=== PATIENT | male | born 1965 | race Caucasian/White ===

== ENCOUNTER → 2018-01-11 | Outpatient (CLI) | payer BC ==
[2018-01-11 07:27] LABS: BASOPHILS % 0.5 % (0.0-1.0); EOSINOPHILS # (AUTO) 0.3 (0.0-0.4); EOSINOPHILS % 3.3 % (0.0-6.0); HEMATOCRIT 47.2 % (38.2-49.6); HEMOGLOBIN 15.9 g/dL (14.0-18.0); LYMPHOCYTES % 37.7 % (18.0-39.1); MEAN CORPUSCULAR HGB CONC 33.7 g/dL (31-35); MONOCYTES # (AUTO) 0.7 (0.2-0.8); MONOCYTES % 8.5 % (4.4-11.3); NEUTROPHILS # (AUTO) 3.9 (2.1-6.9); NEUTROPHILS % 49.4 % (38.7-80.0); PLATELET COUNT 219 x10e3/uL (140-360); RED BLOOD COUNT 5.13 x10e6/uL (4.3-5.7); RED CELL DISTRIBUTION WIDTH 12.4 % (11.7-14.4)
[2018-01-11 07:45] LABS: ALANINE AMINOTRANSFERASE 40 IU/L (0-55); ALBUMIN 4.1 g/dL (3.5-5.0); ALBUMIN/GLOBULIN RATIO 1.4 (0.8-2.0); ALKALINE PHOSPHATASE 66 IU/L (40-150); ANION GAP 12.9 mmol/L (8-16); BLOOD UREA NITROGEN 11 mg/dL (7-26); BUN/CREATININE RATIO 11 (6-25); CARBON DIOXIDE 28 mmol/L (22-29); CHLORIDE 103 mmol/L (98-107); CHOL/HDL RATIO 4.7 (3.9-4.7); CHOLESTEROL 278 MD/DL (0-199); CREATININE, SERUM 0.97 mg/dL (0.72-1.25); EST GLOMERULAR FILTRATION RATE > 60 ML/MIN (60-); GLUCOSE 100 mg/dL (74-118); HDL CHOLESTEROL 59 MG/DL (40-60); LDL CHOLESTEROL 173 MG/DL (60-130); POTASSIUM 3.9 mmol/L (3.5-5.1); SODIUM 140 mmol/L (136-145); TRIGLYCERIDES 230 MG/DL (0-149)
[2018-01-11 08:05] LABS: THYROID STIMULATING HORMONE 0.648 uIU/mL (0.350-4.940)
== END ==
LOC: LAB 06:53
PROVIDERS: ATTEND Internal Medicine
DX: I11.9 Hypertensive heart disease without heart failure (principal)
CPT/HCPCS: 36415; 80053; 80061; 82044; 82570; 83036; 84152; 84443; 85025

== ENCOUNTER → 2018-01-27 | Day surgery (SDC) | payer BC ==
[~2018-01-27] MED LIST: BC POWDER PACK1 EAC1 PO; FENTANYL CITRATE/PF 100MCG/2 ML INJ ONE; LIDOCAINE HCL 2% LOCAL INJ 5 ML SDV VIAL INJ ONE; LOTREL 5-10 MG1 EACH PO; MIDAZOLAM HCL 5 MG/ML VIAL ONE; PANTOPRAZOLE 40 MG 10ML VIAL ONE; PEPCID20 MG PO; PROPOFOL IV EMULSION 10 MG/ML 50 ML VIAL ONE
--- OUTSIDE RECORDS SUMMARY | 2018-01-27 07:36 | XMS REPORT ---
Author Author [facility] Address Unknown Phone Unavailable Care Team Providers Care Security Operations Manager Name Role Phone MANNY SHABAZZ Unavailable Unavailable Problems This patient has no known problems. Allergies, Adverse Reactions, Alerts This patient has no known allergies or adverse reactions. Medications This patient has no known medications. Results Test Description Test Time Test Comments Text Results Atomic Results Result Comments MRI SPINE CERVICAL WO [place] [address] Patient Name: FRANCISCO SEVILLA MR #: [id number] : 1965 Age/Sex: 52/M Req #: [id number] Adm Physician: Ordered by: MANNY SHABAZZ MD Report #: [id number] Location: MRI Room/Bed: Procedure: [id number] MRI/MRI SPINE CERVICAL WO Exam Date: 06/29/17 Exam Time: 1115 REPORT STATUS: Signed History: Neck pain Comparison studies: None Technique: Sagittal T1, T2 and IR, axial T2 and axial gradient echo Intravenous contrast: None Findings: Alignment: Straightening of the cervical spine lordosis. No scoliosis. Cervicomedullary junction: No abnormalities. Patent foramen magnum. Soft tissues: No T2 hyperintense inflammatory changes. Spinal cord: Normal in size and signal from the foramen magnum through T4. Surgical changes: Anterior cervical fusion at C6-7. Vertebrae: Interbody fusion at C5-6. No fractures, infection or neoplasm. Degenerative changes: C2-C3: Small central disc osteophyte complex, right uncinate process hypertrophy and facet hypertrophy results in mild right foraminal narrowing without significant canal stenosis C3-C4: Bilateral uncinate process hypertrophy and facet hypertrophy results in mild right foraminal narrowing without significant canal stenosis C4-C5: Bilateral uncinate process hypertrophy and facet hypertrophy results in mild bilateral foraminal narrowing without significant canal stenosis C5-C6: Fused intervertebral space. Bilateral uncinate process hypertrophy results in mild right foraminal narrowing without significant canal stenosis C6-C7: Bilateral uncinate process hypertrophy without significant canal stenosis and mild bilateral foraminal narrowing C7-T1: Mild right uncinate process hypertrophy with patent canal and foramina Partially visualized left thyroid lobe nodule measuring approximately 2.0 cm in CC diameter IMPRESSION: 1. Anterior cervical fusion at C6-7 without complication. 2. Mild degenerative changes of the cervical spine results in multilevel mild foraminal narrowing as described above. No significant canal stenosis. 3. 2.0cm left thyroid lobe nodule recommend correlation with TFTs and ultrasound Signed by: DR Armen Mclain M.D. on 06/29/2017 3:49 PM Dictated By: ARMEN MCLAIN MD [id number] Transcribed By: CHINEDU on 06/29/17 1543 COPY TO: MANNY SHABAZZ MD
--- NOTE | 2018-01-27 12:44 | Operative Report ---
DATE OF PROCEDURE: January 27, 2018 REFERRING PHYSICIAN: Dr. Ben Shabazz. PROCEDURE PERFORMED: Esophagogastroduodenoscopy with esophageal dilatation and biopsies. INDICATIONS FOR ESOPHAGOGASTRODUODENOSCOPY: Dysphagia to solids. MEDICATION: Patient was done under MAC. Please see anesthesiologist's note. PROCEDURE: With the patient in the left lateral decubitus position, the flexible fiberoptic Olympus gastroscope was introduced into the esophagus under direct visualization without any difficulty. There were some erosions noted in the distal esophagus. A minute tongue of velvety red mucosa was noted to extend proximally from the GE junction, and that was biopsied to rule out Recinos's. There was a mild stricture noted at the GE junction, and that was dilated to a size 52-Sloven[place] Lucas. The scope was then advanced with ease into the stomach, traversing a small hiatal hernia. The mucosa overlying the antrum revealed some patchy intense erythema and moderate edema, and biopsies were obtained and sent to stain for H. pylori. The pylorus was of normal contour and shape, was intubated with ease, and the scope was advanced into the 2nd portion of the duodenum. It was then withdrawn slowly. The mucosa overlying the proximal 2nd portion and the duodenal bulb appeared to be within normal limits. The scope was then withdrawn back into the stomach and retroflexed. The mucosa overlying the fundus appeared to be within normal limits. The previously described hiatal hernia was also noted in the retroflexed position. The scope was then straightened out. It was subsequently withdrawn. Patient tolerated the procedure well. IMPRESSION: 1. Distal erosive esophagitis. 2. Rule out Recinos's esophagus. 3. Mild stricture at gastroesophageal junction dilated to size 52-Slovenian Lucas. 4. Hiatal hernia. 5. Gastritis biopsied. Biopsies sent to stain for H. pylori. PLAN: Follow up histology. Initiate Protonix 40 mg 1 p.o. q.a.m. a.c. Job#: [id number] EV cc:BEN SHABAZZ MD
== END | disposition home or self-care (01) ==
LOC: OR 07:34
PROVIDERS: ATTEND Internal Medicine Gastroenterology
DX: K22.2 Esophageal obstruction (principal); K29.70 Gastritis, unspecified, without bleeding; K31.89 Other diseases of stomach and duodenum; K22.10 Ulcer of esophagus without bleeding; K21.9 Gastro-esophageal reflux disease without esophagitis; K44.9 Diaphragmatic hernia without obstruction or gangrene; I10 Essential (primary) hypertension; Z88.5 Allergy status to narcotic agent; Z79.82 Long term (current) use of aspirin
CPT/HCPCS: 43239; 43450; J2001; J2250

== ENCOUNTER 2018-01-29 10:25 | Emergency (ER) | payer BC ==
[~2018-01-29] VITALS: Ht 170.2 cm; Wt 63.5 kg
[~2018-01-29 10:25] MED LIST changes: -FENTANYL CITRATE/PF 100MCG/2 ML INJ ONE; -LIDOCAINE HCL 2% LOCAL INJ 5 ML SDV VIAL INJ ONE; -MIDAZOLAM HCL 5 MG/ML VIAL ONE; -PANTOPRAZOLE 40 MG 10ML VIAL ONE; -PROPOFOL IV EMULSION 10 MG/ML 50 ML VIAL ONE
[2018-01-29] MEDS ORDERED: PANTOPRAZOLE 40 MG 10ML VIAL IV STA (10:43)
[2018-01-29] MEDS ORDERED: SODIUM CHLORIDE 0.9% 1000ML 1,000 ML IV STA ×2 (10:43→12:26)
[2018-01-29] MEDS ORDERED: MORPHINE SULFATE 2 MG/ML SYR IV STA (10:57)
[2018-01-29] MEDS ORDERED: ONDANSETRON HCL INJ 2 MG/ML VIAL IV STA (10:57)
[2018-01-29 11:16] LABS: BASOPHILS % 0.2 % (0.0-1.0); EOSINOPHILS % 0.4 % (0.0-6.0); HEMATOCRIT 45.2 % (38.2-49.6); HEMOGLOBIN 15.5 g/dL (14.0-18.0); LYMPHOCYTES # (AUTO) 0.7 (1.0-3.2); LYMPHOCYTES % 7.5 % (18.0-39.1); MEAN CORPUSCULAR HEMOGLOBIN 31.3 pg (28-32); MEAN CORPUSCULAR HGB CONC 34.3 g/dL (31-35); MEAN CORPUSCULAR VOLUME 91.1 fL (81-99); MONOCYTES # (AUTO) 0.5 (0.2-0.8); MONOCYTES % 5.4 % (4.4-11.3); NEUTROPHILS # (AUTO) 7.9 (2.1-6.9); NEUTROPHILS % 86.3 % (38.7-80.0); PLATELET COUNT 222 x10e3/uL (140-360); RED BLOOD COUNT 4.96 x10e6/uL (4.3-5.7); RED CELL DISTRIBUTION WIDTH 11.9 % (11.7-14.4)
[2018-01-29 11:34] LABS: ALANINE AMINOTRANSFERASE 25 IU/L (0-55); ALBUMIN 4.4 g/dL (3.5-5.0); ALBUMIN/GLOBULIN RATIO 1.6 (0.8-2.0); ALKALINE PHOSPHATASE 65 IU/L (40-150); AMYLASE 59 U/L (25-125); ANION GAP 13.7 mmol/L (8-16); BLOOD UREA NITROGEN 13 mg/dL (7-26); BUN/CREATININE RATIO 13 (6-25); CALCIUM 9.8 mg/dL (8.4-10.2); CARBON DIOXIDE 27 mmol/L (22-29); CHLORIDE 101 mmol/L (98-107); CREATININE, SERUM 0.98 mg/dL (0.72-1.25); EST GLOMERULAR FILTRATION RATE > 60 ML/MIN (60-); GLUCOSE 106 mg/dL (74-118); LIPASE 27 U/L (8-78); POTASSIUM 3.7 mmol/L (3.5-5.1); SODIUM 138 mmol/L (136-145)
[2018-01-29] MEDS ORDERED: SODIUM CHLORIDE 0.9% 1000ML 1,000 ML ONE (12:23)
--- NOTE | 2018-01-29 12:34 | Diagnostic Imaging Report ---
EXAM: CT Abdomen and Pelvis WITH contrast INDICATION: Epigastric abdominal pain and pressure COMPARISON: None. TECHNIQUE: Abdomen and pelvis were scanned utilizing a multidetector helical scanner from the lung base to the ischial tuberosities after administration of IV contrast. Coronal and sagittal reformations were obtained. Routine protocol was performed. Scan was performed when during portal venous phase. IV CONTRAST: 100 mL of Isovue-370 ORAL CONTRAST: None RADIATION DOSE: Total DLP: 233.35 mGy*cm Estimated effective dose: DLP x 0.015 mSv COMPLICATIONS: None FINDINGS: LINES and TUBES: None. LOWER THORAX: The lungs and airways are normal. HEPATOBILIARY: No focal hepatic lesions. No biliary ductal dilation. GALLBLADDER: No radio-opaque stones or sludge. No wall thickening. SPLEEN: No splenomegaly. PANCREAS: 1.4 cm enhancing mass in the tail of the pancreas (series 2, image 26). No pancreatic ductal dilatation. ADRENALS: No adrenal nodules KIDNEYS/URETERS: Kidneys enhance symmetrically. No hydronephrosis. No cystic or solid mass lesions. No stones. GI TRACT: No abnormal distention, wall thickening, or evidence of bowel obstruction. Appendix is normal. PELVIC ORGANS/BLADDER: Unremarkable. LYMPH NODES: No lymphadenopathy. VESSELS: Unremarkable. PERITONEUM / RETROPERITONEUM: No free air or fluid. BONES: Sclerotic lesion in the right iliac bone is most likely a benign bone island. SOFT TISSUES: Unremarkable. IMPRESSION: 1. No specific findings to account for the patient's symptoms. 2. Incidental note of a 1.4 cm enhancing mass in the pancreatic tail. This probably represents benign intrapancreatic splenic tissue. Recommend MRI of the abdomen (pancreatic protocol, with and without contrast) or nuclear medicine sulfur colloid scan for confirmation. Signed by: Dr. Andrew Alvarado M.D. on 01/29/2018 12:30 PM
[2018-01-29 13:08] VITALS: BP 129/84
[2018-01-30] MEDS ORDERED: IOPAMIDOL 370 MG/ML 200 ML INFUS..BTL INJ ONE (00:11)
[2018-01-30] MEDS ORDERED: SODIUM CHLORIDE 0.9% 50ML 50 ML ONE (00:11)
== END 2018-01-29 13:11 | disposition home or self-care (01) ==
LOC: ER 10:25
DX: R10.13 Epigastric pain (principal); I10 Essential (primary) hypertension
CPT/HCPCS: 36415; 74177; 80053; 82150; 83690; 85025; 93005; 99283; J2270; J2405; J7030

== ENCOUNTER → 2020-01-08 | Outpatient (CLI) | payer BC ==
--- NOTE | 2020-01-08 16:02 | Diagnostic Imaging Report ---
MRI SPINE CERVICAL WO HISTORY: Left cervical radiculopathy, left arm pain COMPARISON: Cervical spine MRI 06/29/2017 TECHNIQUE: Sagittal T1, sagittal T2, sagittal inversion recovery, axial T2, axial T2 GRE, and axial T1 weighted MR images of the cervical spine were obtained without intravenous contrast. DISCUSSION: ACDF changes at C6-C7 are present. Hardware susceptibility artifacts obscure some details. 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 Alignment: Straightening of the cervical spine lordosis. No scoliosis. Vertebrae: No definite evidence for fractures, infection, or neoplasm. Cervicomedullary junction: No abnormalities. Spinal cord: Normal in signal and morphology from the foramen magnum through T4. Soft tissues: Approximately 2.3 cm heterogeneous T2 hyperintense left thyroid nodule is present. There is mild to moderate disc degeneration above and below the fusion levels. C2-C3: Patent canal and foramina. C3-C4: Mild canal stenosis due to posterior disc osteophyte complex and ligamentum flavum thickening. Mild to moderate right foraminal stenosis due to uncovertebral and facet arthrosis. No significant left foraminal stenosis. C4-C5: Mild canal stenosis due to posterior disc osteophyte complex and ligamentum flavum thickening. Mild bilateral foraminal stenoses due to uncovertebral and facet arthrosis. C5-C6: Mild bilateral foraminal stenoses due to uncovertebral and facet arthrosis. No significant canal stenosis. C6-C7: Fusion level without significant canal stenosis. Mild right and mild to moderate left foraminal stenoses due to uncovertebral and facet arthrosis. C7-T1: Patent canal and foramina. IMPRESSION: 1. ACDF changes at C6-C7. 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 2. Mild to moderate disc degeneration above and below the fusion levels. 3. Mild degenerative canal stenoses at the C3-C4 and C4-C5. 4. Multilevel degenerative foraminal stenoses - mild to moderate on the right at C3-C4 and on the left at C6-C7. 5. Approximately 2.3 cm left thyroid nodule. Correlation with thyroid ultrasound is recommended. Signed by: Dr. Alan Sanchez M.D. on 01/08/2020 3:58 PM
== END ==
LOC: MRI 09:05
PROVIDERS: ATTEND Internal Medicine
DX: M54.12 Radiculopathy, cervical region (principal); M50.30 Other cervical disc degeneration, unspecified cervical region
CPT/HCPCS: 72141

== ENCOUNTER → 2020-08-28 | Outpatient (CLI) | payer OTHER ==
[~2020-08-28] MED LIST changes: +COVID-19 VACC, MRNA(MODERNA)/PF 100 MCG/0.5 ML VIAL IM ONE
== END ==
LOC: VACCPMC 07:00
DX: Z23 Encounter for immunization (principal); Z20.822 Contact with and (suspected) exposure to COVID-19